=== PATIENT | female | born 1975 | race Hispanic/Latino ===

== ENCOUNTER 2021-10-26 11:26 | Emergency (ER) | payer OTHER, BC ==
[~2021-10-26] VITALS: Ht 165.1 cm; Wt 97.5 kg
[2021-10-26] MEDS ORDERED: CYCLOBENZAPRINE HCL 10 MG TABLET PO SCH (12:30)
[2021-10-26] MEDS ORDERED: KETOROLAC 60 MG VIAL (30MG/ML) IM SCH (12:30)
[2021-10-26 13:29] VITALS: BP 122/77
[2021-10-26] MEDS ORDERED: CYCL10TA16 PO (13:30)
[2021-10-26] MEDS ORDERED: NAPR-1180 PO (13:30)
== END 2021-10-26 13:43 | disposition home or self-care (01) ==
LOC: EDH 11:26
DX: S39.012A Strain of muscle, fascia and tendon of lower back, initial encounter (principal); S29.012A Strain of muscle and tendon of back wall of thorax, initial encounter; Z79.899 Other long term (current) drug therapy; V49.49XA Driver injured in collision with other motor vehicles in traffic accident, initial encounter; Y93.89 Activity, other specified; Y92.410 Unspecified street and highway as the place of occurrence of the external cause; Y99.8 Other external cause status
CPT/HCPCS: 72072; 72100; 96372; 99284; J1885